=== PATIENT | male | born 1970 | race Caucasian/White ===

== ENCOUNTER 2022-11-09 09:18 | Emergency (ER) | payer OTHER, SELFPAY ==
--- NOTE | 2022-11-09 09:22 | ED.URI ---
HPI - URI/Sore Throat General Chief Complaint: Upper Respiratory Infection Stated Complaint: congestion, cough, shortness of breath Source: patient and RN notes reviewed History of Present Illness HPI Narrative: 52 yo M presents to urgent care with complaints of cough, chest tightness, and bilateral lower back pain x 3 days. Pt states he was having cold-like symptoms x 1 week but developed a cough 3 days ago. Pt states he is prone to have PNA. Reports some SOB but denies any chest pain. Reports a low grade fever last night. Pt has been taking Mucinex without relief. Denies any vomiting or diarrhea. Does report a HANNAH. Related Data Home Medications Medication Instructions Recorded Confirmed amlodipine 5 mg tablet 5 mg PO DIRECTED 11/09/22 11/09/22 desvenlafaxine succinate 50 mg 50 mg PO DAILY 11/09/22 11/09/22 tablet,extended release 24 hr gabapentin 600 mg tablet 600 mg PO DIRECTED 11/09/22 11/09/22 sertraline 100 mg tablet 100 mg PO DAILY 11/09/22 11/09/22 simvastatin 20 mg tablet 20 mg PO DAILY 11/09/22 11/09/22 Allergies Allergy/AdvReac Type Severity Reaction Status Date / Time No Known Drug Allergies Allergy Unknown Other Verified 11/09/22 09:26 Review of Systems Review of Systems: CONSTITUTIONAL: Low grade fever EYES: Denies visual changes, redness, or discharge. ENT: Denies otalgia and sore throat CARDIOVASCULAR: Chest tightness RESPIRATORY: cough and dyspnea. GASTROINTESTINAL: Denies abdominal pain, nausea, vomiting, or diarrhea. GENITOURINARY: Denies dysuria or hematuria. SKIN: Denies rash or itching. MUSCULOSKELETAL: Denies back pain, joint pain, or myalgia. NEUROLOGIC: headache PMFSH Comments At the time of my signature, I reviewed and agree with the nursing past medical, surgical, social, and family history. There is no relevant family history pertinent to the patient complaint. Exam Narrative: GENERAL: This is a well-nourished, well-developed patient, in no apparent distress. HEAD: normocephalic, atraumatic. EYES: PERRL. Sclera clear/white. Vision is grossly intact. EARS: External ears normal, auditory canals clear and without drainage, TMs normal without perforation. Hearing grossly intact. NOSE: External nose normal with no obvious nasal discharge, nares without redness, no rhinorrhea. THROAT: Mucous membranes moist, posterior pharynx clear. NECK: Neck supple, non-tender without lymphadenopathy, masses or thyromegaly. CARDIOVASCULAR: Regular rate and rhythm without murmurs, gallops, or rubs. RESPIRATORY: Clear to auscultation. Breath sounds equal bilaterally. No wheezes, rales, or rhonchi. Dry coughing frequently. GASTROINTESTINAL: Abdomen soft, non-tender, nondistended. Bowel sounds are active. No hepato-splenomegaly, or palpable masses. No guarding. SKIN: warm, intact with no suspicious lesions or rash, good texture and turgor. NEURO: awake, alert, and oriented to person, place and time. There were no obvious focal neurologic abnormalities. Course Course Level of Care: Express Care Visit Vital Signs Vital signs: Vital Signs Temperature 98 F 11/09/22 09:33 Pulse Rate 82 11/09/22 09:33 Respiratory Rate 16 11/09/22 09:33 Blood Pressure 158/95 H 11/09/22 09:33 Pulse Oximetry 100 11/09/22 09:33 Temperature 98 F 11/09/22 09:33 Pulse Rate 82 11/09/22 09:33 Respiratory Rate 16 11/09/22 09:33 Blood Pressure 158/95 H 11/09/22 09:33 Pulse Oximetry 100 11/09/22 09:33 reviewed. MDM - URI/Sore Throat MDM Narrative Medical decision making narrative: Take the steroids and antibiotics as directed. May take 2 puffs of inhaler every 4-6 hours if needed. Follow up with your baggageman. Go to the ER with any new or worsening symptoms. Differential Diagnosis Differential diagnosis: Likely upper respiratory infection, bronchitis and other (pna) Critical Care Time Critical Care Time Critical Care Time: No Discharge Plan Discharge Clinical Impression:
[2022-11-09 09:33] VITALS: BP 158/95; PULSE 82; RESP 16; TEMP 36.6; O2SAT 100
== END 2022-11-09 09:56 | disposition home or self-care (01) ==
PROVIDERS: Emergency Provider Nurse Practitioner Family; PCP Internal Medicine
DX: J40 Bronchitis, not specified as acute or chronic (principal); E78.00 Pure hypercholesterolemia, unspecified; I10 Essential (primary) hypertension; M19.90 Unspecified osteoarthritis, unspecified site
CPT/HCPCS: 99203; G0463

== ENCOUNTER 2023-05-20 11:56 | Emergency (ER) | payer OTHER, SELFPAY ==
[2023-05-20 12:11] VITALS: BP 141/103; PULSE 73; RESP 16; TEMP 36.8; O2SAT 100
--- NOTE | 2023-05-20 12:19 | ED.URI ---
HPI - URI/Sore Throat General Chief Complaint: Upper Respiratory Infection Stated Complaint: Cold symptoms Source: patient and RN notes reviewed History of Present Illness HPI Narrative: 53 yo M presents to urgent care with complaints of sore throat, sinus pressure, ear popping, nasal drainage x 1 week. Pt denies any N/V/D, chest pain, fever, or chills. Pt has been taking Mucinex at home. Related Data Home Medications Medication Instructions Recorded Confirmed amlodipine 5 mg tablet 5 mg PO DIRECTED 11/09/22 05/20/23 gabapentin 600 mg tablet 600 mg PO DIRECTED 11/09/22 05/20/23 sertraline 100 mg tablet 100 mg PO DAILY 11/09/22 05/20/23 simvastatin 20 mg tablet 20 mg PO DAILY 11/09/22 05/20/23 desvenlafaxine succinate 50 mg 50 mg PO DAILY 05/20/23 05/20/23 tablet,extended release 24 hr Allergies Allergy/AdvReac Type Severity Reaction Status Date / Time No Known Drug Allergies Allergy Unknown Other Verified 11/09/22 09:26 Review of Systems Review of Systems: Pertinent positives and pertinent negatives per HPI. [facility] Comments At the time of my signature, I reviewed and agree with the nursing past medical, surgical, social, and family history. There is no relevant family history pertinent to the patient complaint. Exam Narrative: GENERAL: This is a well-nourished, well-developed patient, in no apparent distress. HEAD: normocephalic, atraumatic. EYES: Sclera clear/white. Vision is grossly intact. EARS: External ears normal, auditory canals clear and without drainage, TMs normal without perforation. Hearing grossly intact. NOSE: External nose normal with no obvious nasal discharge, nares without redness, no rhinorrhea. THROAT: Mucous membranes moist, posterior pharynx clear. NECK: Neck supple, non-tender without lymphadenopathy, masses or thyromegaly. CARDIOVASCULAR: Regular rate and rhythm without murmurs, gallops, or rubs. RESPIRATORY: Clear to auscultation. Breath sounds equal bilaterally. No wheezes, rales, or rhonchi. SKIN: warm, intact with no suspicious lesions or rash, good texture and turgor. NEURO: awake, alert, and oriented to person, place and time. There were no obvious focal neurologic abnormalities. EXTREMITIES: No clubbing, cyanosis, or edema. No joint tenderness, effusion, or edema noted. BACK: Nontender without deformity or crepitus. No flank tenderness. Course Course Level of Care: Express Care Visit Vital Signs Vital signs: Vital Signs Temperature 98.3 F 05/20/23 12:11 Pulse Rate 73 05/20/23 12:11 Respiratory Rate 16 05/20/23 12:11 Blood Pressure 141/103 H 05/20/23 12:11 Pulse Oximetry 100 05/20/23 12:11 Temperature 98.3 F 05/20/23 12:11 Pulse Rate 73 05/20/23 12:11 Respiratory Rate 16 05/20/23 12:11 Blood Pressure 141/103 H 05/20/23 12:11 Pulse Oximetry 100 05/20/23 12:11 reviewed MDM - URI/Sore Throat MDM Narrative Medical decision making narrative: Viral illness may last between 7-12days; antibiotic is NOT recommended at this time. Recommend antihistamine such as Benadryl at night time and Claritin/Zyrtec/Rosa during the day. Increase your Vitamin C intake. Steam from hot showers help with congestion. Also, recommend symptomatic treatment includes: rest, fluids, increase humidity of the air at home with a humidifier in the bedroom. Recommend Acetaminophen or nonsteroidal anti-inflammatory agents(NSAIDs) as directed in the bottle to reduce fever and/pain/headache. Avoid smoking/second-hand smoke. Limit visits to areas with large crowds. Frequent hand washing or hand sales project manager is one of the best ways to prevent spread of infection. may take an antihistamine such as Zyrtec, Rosa, or Claritin at nighttime to help with nasal drainage and ear popping. Differential Diagnosis Differential diagnosis: Likely upper respiratory infection, sinusitis, viral infection and pharyngitis Lab Data Attestation: I reviewed the patient's lab r
== END 2023-05-20 12:31 | disposition home or self-care (01) ==
PROVIDERS: Emergency Provider Nurse Practitioner Family; PCP Internal Medicine
DX: J06.9 Acute upper respiratory infection, unspecified (principal); E78.00 Pure hypercholesterolemia, unspecified; I10 Essential (primary) hypertension; M19.90 Unspecified osteoarthritis, unspecified site
CPT/HCPCS: 87081; 87880; 99213; G0463

== ENCOUNTER 2023-10-12 11:49 | Emergency (ER) | payer OTHER, SELFPAY ==
[2023-10-12 12:00] VITALS: BP 155/104; PULSE 68; RESP 16; TEMP 36.4; O2SAT 99
--- NOTE | 2023-10-12 12:09 | ED.URI ---
HPI - URI/Sore Throat General Chief Complaint: Upper Respiratory Infection Stated Complaint: SORE THROAT/COUGH/CONGESTION Time Seen by Provider: 10/12/23 12:02 Source: patient and RN notes reviewed Mode of arrival: ambulatory Limitations: no limitations History of Present Illness HPI Narrative: Patient presents today with a 2 week history of congestion, sinus pressure, right ear pressure, with sore throat that started 2 days ago. Denies shortness of breath or difficulty swallowing. Currently rates his pain 5/10 and has been taking Mucinex and DayQuil without much relief. Related Data Home Medications Medication Instructions Recorded Confirmed amlodipine 5 mg tablet 5 mg PO DIRECTED 11/09/22 05/20/23 gabapentin 600 mg tablet 600 mg PO DIRECTED 11/09/22 05/20/23 sertraline 100 mg tablet 100 mg PO DAILY 11/09/22 05/20/23 simvastatin 20 mg tablet 20 mg PO DAILY 11/09/22 05/20/23 desvenlafaxine succinate 50 mg 50 mg PO DAILY 05/20/23 05/20/23 tablet,extended release 24 hr Allergies Allergy/AdvReac Type Severity Reaction Status Date / Time No Known Drug Allergies Allergy Unknown Other Verified 11/09/22 09:26 Review of Systems Review of Systems: CONSTITUTIONAL: Denies body aches, fever, chills, or sweats. EYES: Denies visual changes, redness, or discharge. ENT: Denies rhinorrhea. + congestion, sore throat, right ear pressure, sinus pressure CARDIOVASCULAR: Denies chest pain, palpitations, or edema. RESPIRATORY: Denies cough or dyspnea. GASTROINTESTINAL: Denies abdominal pain, nausea, vomiting, or diarrhea. GENITOURINARY: Denies dysuria or hematuria. SKIN: Denies rash, itching, or wounds. MUSCULOSKELETAL: Denies back pain, joint pain, or myalgia. NEUROLOGIC: Denies headache, numbness, tingling, or weakness. PSYCH: Denies depression or anxiety. PMFSH Comments At time of signature, I have reviewed and agree with nursing past medical, surgical, social and family history unless otherwise noted. Please see nursing chart for further information. There is no relevant family history pertinent to the presenting complaint Exam Narrative: GENERAL: Mildly ill-appearing, well-nourished, and in no acute distress. HEAD: Normocephalic, atraumatic. EYES: EOMI. No redness or drainage. Conjunctivae normal. ENT: Mucous membranes pink and moist. Nares congested. No rhinorrhea. TMs normal bilaterally. Bilateral maxillary sinus tenderness. throat mildly erythematous posteriorly without edema or exudate. Uvula midline. NECK: Normal AROM. Supple. No lymphadenopathy. CHEST: No respiratory distress. Clear to auscultation. HEART: Regular rate and rhythm. No murmur appreciated. EXTREMITIES: Normal range of motion. No edema. SKIN: Warm, dry, no rash. Capillary refill normal. Normal skin turgor. NEURO: No focal deficits. Alert and oriented x3. Gait steady. PSYCH: Normal affect. No signs of depression or anxiety. Course Course Level of Care: Express Care Visit Vital Signs Vital signs: Vital Signs Temperature 97.6 F 10/12/23 12:00 Pulse Rate 68 10/12/23 12:00 Respiratory Rate 16 10/12/23 12:00 Blood Pressure 155/104 H 10/12/23 12:00 Pulse Oximetry 99 10/12/23 12:00 Oxygen Delivery Room Air 10/12/23 12:00 Temperature 97.6 F 10/12/23 12:00 Pulse Rate 68 10/12/23 12:00 Respiratory Rate 16 10/12/23 12:00 Blood Pressure 155/104 H 10/12/23 12:00 Pulse Oximetry 99 10/12/23 12:00 Oxygen Delivery Room Air 10/12/23 12:00 Reviewed MDM - URI/Sore Throat MDM Narrative Medical decision making narrative: Patient will be treated with a course of Augmentin for sinusitis. Discussed [id number] medication use as well. Anticipatory guidance given. Differential Diagnosis Differential diagnosis: Likely upper respiratory infection, otitis media, sinusitis, viral infection and pharyngitis Critical Care Time Critical Care Time Critical Care Time: No Discharge Plan Discharge
== END 2023-10-12 12:14 | disposition home or self-care (01) ==
PROVIDERS: Emergency Provider Nurse Practitioner; PCP Internal Medicine
DX: J01.00 Acute maxillary sinusitis, unspecified (principal); E78.00 Pure hypercholesterolemia, unspecified; I10 Essential (primary) hypertension; M19.90 Unspecified osteoarthritis, unspecified site
CPT/HCPCS: 99213; G0463

== ENCOUNTER 2023-12-13 11:55 | Emergency (ER) | payer OTHER, SELFPAY ==
--- NOTE | 2023-12-13 11:59 | ED.URI ---
HPI - URI/Sore Throat General Chief Complaint: Ear Stated Complaint: SINUS CONGESTION/EARACHE Time Seen by Provider: 12/13/23 12:20 Source: patient and RN notes reviewed Mode of arrival: ambulatory Limitations: no limitations History of Present Illness HPI Narrative: 53-year-old male presents with concern for right ear pain for 2 days. He has had ear pain for about a month but is gotten worse recently. He reports body aches, chills, sinus congestion. Reports cold medicine is not helping. He denies drainage from the ear. MD elicited complaint: other (Ear pain) Related Data Home Medications Medication Instructions Recorded Confirmed amlodipine 5 mg tablet 5 mg PO DIRECTED 11/09/22 12/13/23 gabapentin 600 mg tablet 600 mg PO DIRECTED 11/09/22 12/13/23 sertraline 100 mg tablet 100 mg PO DAILY 11/09/22 12/13/23 simvastatin 20 mg tablet 20 mg PO DAILY 11/09/22 12/13/23 desvenlafaxine succinate 50 mg 50 mg PO DAILY 05/20/23 12/13/23 tablet,extended release 24 hr Allergies Allergy/AdvReac Type Severity Reaction Status Date / Time No Known Drug Allergies Allergy Unknown Other Verified 11/09/22 09:26 Review of Systems Review of Systems: CONSTITUTIONAL: Reports malaise, chills EYES: Denies visual changes, redness, or discharge. ENT: Reports rhinorrhea, congestion, otalgia CARDIOVASCULAR: Denies chest pain, palpitations, or edema. RESPIRATORY: Denies cough. Denies dyspnea. GASTROINTESTINAL: Denies abdominal pain, nausea, vomiting, diarrhea SKIN: Denies rash or itching. MUSCULOSKELETAL: Reports myalgia. NEUROLOGIC: Denies headache. All systems reviewed & are unremarkable except as noted in HPI and below PMFSH Comments At time of signature, agree with nursing past medical, surgical, social and family history. There is no relevant family history pertinent to the presenting complaint Exam Narrative: GENERAL: Well-appearing, well-nourished, and in no acute distress. HEAD: Normocephalic EYES: PERRLA, conjunctivae clear ENT: Nares clear. Mucous membranes moist. TM pearly cheng with dull light reflex on the left, not visible on the right; right tragal tenderness. Oropharynx not erythematous without lesions. Tonsils not enlarged and without exudate, no drooling, no hoarseness, no trismus, uvula midline. NECK: Supple. No lymphadenopathy CHEST: Clear to auscultation, breath sounds equal. No wheezing, rhonchi, rales, or stridor. No respiratory distress, speaks in full sentences. HEART: Regular rate and rhythm. No murmur heard. SKIN: Warm, dry, no rash. NEURO: Alert and oriented x3. PSYCH: Normal mood and affect Course Course Emergency Course: Patient is aware of diagnosis, understands and agrees to treatment plan. Anticipatory guidance given. Patient agrees to follow-up as directed and is aware of reasons to seek care at the emergency department. Portions of this record may have been created with voice recognition software Level of Care: Express Care Visit Vital Signs Vital signs: Reviewed. Procedures Ear Wax Removal Right Ear: Ear Wax Removal Date: 12/13/23 Ear Wax Removal Time: 13:00 Cerumenolytic Used: other (hydrogen peroxide) Results: Re-examined: removal reattempted Ear Canal Exam: atraumatic Patient Tolerated Procedure: other (discomfort) Technique: ear canal irrigated and ear canal curetted Additional Comments: Unable to remove enough cerumen to visualize ear canal MDM - URI/Sore Throat MDM Narrative Medical decision making narrative: Differential diagnosis considered: Hardin virus, strep pharyngitis, allergic rhinitis, upper respiratory tract infection, sinusitis, rhinosinusitis, nasopharyngitis. viral pharyngitis, otitis media, otitis externa, pneumonia, bronchitis, viral cough syndrome, viral syndrome, and influenza. Exam findings show no acute concerns or changes; patient is non-toxic appearing and is in no distress. Patient is appropriat
[2023-12-13 12:07] VITALS: BP 131/96; PULSE 72; RESP 16; TEMP 36.5; O2SAT 99
--- NOTE | 2023-12-13 12:50 | PC.NURSE ---
1235- pt laying on side with effected ear towards ceiling, and peroxide placed in ear canal to attempt to soften wax up for TOLL LINE REPAIRER to be able to see ear drum.
== END 2023-12-13 13:19 | disposition home or self-care (01) ==
PROVIDERS: Emergency Provider Nurse Practitioner; PCP Internal Medicine
DX: J01.90 Acute sinusitis, unspecified (principal); H61.21 Impacted cerumen, right ear; Z20.822 Contact with and (suspected) exposure to COVID-19; E78.00 Pure hypercholesterolemia, unspecified; I10 Essential (primary) hypertension; M19.90 Unspecified osteoarthritis, unspecified site
CPT/HCPCS: 69210; 87426; 87804; 99213; G0463

== ENCOUNTER 2024-10-01 15:01 | Emergency (ER) | payer OTHER, SELFPAY ==
[2024-10-01 15:12] VITALS: BP 133/82; PULSE 79; RESP 16; TEMP 36.8; O2SAT 99
--- NOTE | 2024-10-01 15:15 | ED.URI ---
HPI - URI/Sore Throat General Chief Complaint: Upper Respiratory Infection Stated Complaint: Flu Symptoms Time Seen by Provider: 10/01/24 15:13 Source: patient Mode of arrival: ambulatory Limitations: no limitations History of Present Illness HPI Narrative: Ernie is a 54-year-old male patient presenting to the clinic today with complaints of feeling feverish, body aches, chills, cough, sinus pressure, and nasal drainage x1 week. He denies any chest pain or shortness of breath. MD elicited complaint: sore throat and nasal congestion Related Data Home Medications ?Medication ?Instructions ?Recorded ?Confirmed ?Last Taken ?Type amlodipine 5 mg tablet 5 mg PO DIRECTED 11/09/22 12/13/23 Unknown History gabapentin 600 mg tablet 600 mg PO DIRECTED 11/09/22 12/13/23 Unknown History sertraline 100 mg tablet 100 mg PO DAILY 11/09/22 12/13/23 Unknown History simvastatin 20 mg tablet 20 mg PO DAILY 11/09/22 12/13/23 Unknown History desvenlafaxine succinate 50 mg 50 mg PO DAILY 05/20/23 12/13/23 Unknown History tablet,extended release 24 hr Allergies Allergy/AdvReac Type Severity Reaction Status Date / Time No Known Drug Allergies Allergy Unknown Other Verified 11/09/22 09:26 Review of Systems Review of Systems: Pertinent positives per HPI. Patient denies any rash, headache, visual changes, dizziness, shortness of breath, chest pain, palpitations, nausea, vomiting, diarrhea, constipation, abdominal pain, or any urinary issues. PMFSH Comments At the time of my signature, I reviewed and agree with the nursing past medical, surgical, social, and family history. There is no relevant family history pertinent to the patient complaint. Exam Narrative: General: Well-developed, well nourished, in no apparent distress Head: Normocephalic, atraumatic Eyes: Pupils equally round and reactive to light bilaterally, EOM intact, sclera and conjunctive clear, no discharge, lids normal Ears: TMs intact and congested, ear canals clear, no drainage, grossly hearing normal. Nose: Nares patent, clear nasal discharge, no inflammation, no sinus tenderness. Mouth: Oral pharynx red without lesions or masses, good dentition, MMM. Postnasal drip Neck: Supple, trachea midline, no enlargement of anterior or posterior cervical nodes, no thyroid masses or goiter palpable. Cardio: Regular rate and rhythm, s1 and s2 normal, no murmur appreciated. Resp: Clear to auscultation bilaterally, no rhonchi, rales, wheezing or rubs Course Course Emergency Course: Portions of this record may have been created with voice recognition software. Level of Care: Express Care Visit Vital Signs Vital signs: Vital Signs Oxygen Delivery Room Air 10/01/24 15:11 Temperature 36.8 C 10/01/24 15:12 Pulse Rate 79 10/01/24 15:12 Respiratory Rate 16 10/01/24 15:12 Blood Pressure 133/82 10/01/24 15:12 Pulse Oximetry 99 10/01/24 15:12 Oxygen Delivery Room Air 10/01/24 15:11 Vital signs reviewed MDM - URI/Sore Throat MDM Narrative Medical decision making narrative: At the time of visit patient is resting comfortably on the exam table. Patient appears to be nontoxic. Labs: COVID, influenza, and strep test were performed. Influenza and strep test were negative. We will send strep for culture. COVID testing was positive. Plan: Patient has COVID. Has had week worth of symptoms will place him on prednisone. Supportive measures were discussed with the patient and they voiced understanding discharge instructions and agrees to treatment plan. Return precautions reviewed Differential Diagnosis Differential diagnosis: Likely upper respiratory infection, otitis media, sinusitis, viral infection, bronchitis, influenza, pharyngitis and other (COVID) Discharge Plan Discharge Clinical Impression: COVID-19 Patient Disposition: Home, Self-Care Condition: Stable Instructions: Antibiotic Form, How to Recover from COVID-19 at Home (ED) Additional Instructions: COVID testing was positive in the clinic today. Influenza and strep testing was negative. Take prescription medications only as prescribed Increase fluids and stay well hydrated Tylenol/motrin for pain/fever Flonase and OTC antihistamines as directed Vicks vapor rub to open sinuses Sinus rinses for congestion Cepacol spray, cough drops, throat lozenges, warm tea with honey/lemon, gargle salt water to soothe throat BRAT diet for diarrhea Clear liquids x 24 hours then advance as tolerated for nausea/vomiting Go to the ED if you develop a worsening in your condition- high fever not controlled by Tylenol or Motrin, dehydration, weakness, lethargy, shortness of breath, or chest pain. Follow up with your PCP in 3-5 days if symptoms persist. Patient Language: Luxembourgish Prescriptions: New prednisone 20 mg tablet 40 mg PO DAILY 5 Days Qty: 10 0RF No Action gabapentin 600 mg tablet 600 mg PO DIRECTED sertraline 100 mg tablet 100 mg PO DAILY amlodipine 5 mg tablet 5 mg PO DIRECTED simvastatin 20 mg tablet 20 mg PO DAILY desvenlafaxine succinate 50 mg tablet extended release 24 hr 50 mg PO DAILY methylprednisolone [Medrol (Get)] 4 mg tablets,dose pack See Rx Instructions .ROUTE .COMPLEX Qty: 21 0RF Rx Instructions: orally per package directions amoxicillin-pot clavulanate 875-125 mg tablet 1 tablet PO Q12H 10 Days Qty: 20 0RF Follow-up/Referrals: Ember,Leander Keller MD [Primary Care Provider] - Stand Alone Forms: Work/School Release IP Time of Disposition: 15:19 Quality NIHSS Nursing Documentation ED NIHSS nursing documentation: reviewed/agree
[2024-10-01 15:26] LABS: EDCOVIDSCREEN Positive (Negative); EDINFLUASCREEN Negative (Negative); EDINFLUBSCREEN Negative (Negative); EDSTREPNEGPOS1 Negative (Negative)
== END 2024-10-01 15:26 | disposition home or self-care (01) ==
PROVIDERS: Emergency Provider Nurse Practitioner Family; PCP Internal Medicine
DX: U07.1 COVID-19 (principal)
CPT/HCPCS: 87081; 87426; 87804; 87880; 99213; G0463